=== PATIENT | male | born 1960 | race Two or more races ===

== ENCOUNTER 2018-01-11 07:06 | Outpatient (CLI) | payer OTHER | END 2018-01-11 08:18 | disposition home or self-care (01) | LOC: NUCLEAR 07:06 | DX: I25.83 Coronary atherosclerosis due to lipid rich plaque (principal); I25.2 Old myocardial infarction ==

== ENCOUNTER 2018-10-03 09:00 | Inpatient (IN) | payer OTHER ==
[~2018-10-03] VITALS: Ht 177.8 cm; Wt 68.9 kg
[~2018-10-03 09:00] MED LIST: ATIVAN2 M1 PO; GABAPENTIN300 MG PO
== END 2018-10-10 10:41 | disposition home or self-care (01) | DRG 708 ==
LOC: O/R 10-08 06:35 → SURH 10-08 06:35 → SURG 10-08 08:30 → SURH 10-08 16:57
PROVIDERS: ADMIT Urology
PROC: 0VT00ZZ Resection of Prostate, Open Approach (ICD-10-PCS; principal; 2018-10-08 08:30)
DX: C61 Malignant neoplasm of prostate (principal); F32.89 Other specified depressive episodes